=== PATIENT | male | born 1930 | race Caucasian/White ===

== ENCOUNTER 2017-05-23 14:03 | Outpatient (CLI) | payer MEDICARE ==
[2017-05-23 15:03] LABS: Hemoglobin 15.8 g/dL (14.0-18.0); Mean Corpuscular Hemoglobin 32.6 pg (27.0-31.0); Mean Corpuscular Volume 95.9 fl (80.0-94.0); Mean Platelet Volume 6.9 fL (7.4-10.4); Platelet Count 238 thou/uL (130-400); RBC Distribution Width 12.3 % (11.5-14.5); Red Blood Cell (RBC) Count 4.85 mill/uL (4.70-6.10); White Blood Cell (WBC) Count 8.1 thou/uL (4.8-10.8)
[2017-05-23 15:11] LABS: INR-International Normal Ratio 1.6; Prothrombin Time 19.4 SEC (12.0-14.7)
[2017-05-23 15:12] LABS: PTT 40.4 SEC (22.9-36.1)
[2017-05-23 15:23] LABS: Anion Gap 13 mmol/L (10-20); BUN (Urea Nitrogen) 20 mg/dL (8.4-25.7); Calc. Creatinine Clearance 0 mL/min (70-130); Calcium 9.5 mg/dL (7.8-10.44); Carbon Dioxide 22 mmol/L (23-31); Chloride 106 mmol/L (98-107); Estimated GFR-MDRD 52; Glucose 106 mg/dL (83-110); Potassium 4.5 mmol/L (3.5-5.1); Sodium 136 mmol/L (136-145)
== END 2017-05-23 14:04 | disposition home or self-care (01) ==
LOC: LABBT 14:03
PROVIDERS: ATTEND Urology
DX: Z01.812 Encounter for preprocedural laboratory examination (principal); Z01.810 Encounter for preprocedural cardiovascular examination; C67.3 Malignant neoplasm of anterior wall of bladder
CPT/HCPCS: 80048; 85027; 85610; 85730; 93005; 93010

== ENCOUNTER 2017-05-27 06:25 | Day surgery (SDC) | payer MEDICARE ==
[2017-05-23 14:34] VITALS: BMI 27.1
[2017-05-27] MEDS ORDERED: CEFAZOLIN/Water 2 GM/20 ML SYRINGE ONE (07:50)
[2017-05-27] MEDS ORDERED: Fentanyl 250 MCG/5 ML VIAL ONE (08:22)
[2017-05-27] MEDS ORDERED: Iothalamate Meglumine 60% 50 ML VIAL FS ONE (08:23)
--- NOTE | 2017-05-27 11:18 | OP ---
DATE OF PROCEDURE: 05/27/2017 PREOPERATIVE DIAGNOSIS: Recurrent bladder tumors. POSTOPERATIVE DIAGNOSIS: Recurrent bladder tumors. PROCEDURE PERFORMED: Cystoscopy and fulguration. SURGEON: Dr. Kevin Mckeon ANESTHETIC: TIVA. ESTIMATED BLOOD LOSS: None DRAINS: None. PATH: None. FINDINGS: There was a 1 cm area of papillary tumors from the 12 to 1 o'clock position at the a nd just inside of the bladder neck. This area was completely fulgurated with the Bugbee. There was a second tiny papillary tumor in the posterior wall just to the left of the midline that was fulgurat ed. OPERATIVE TECHNIQUE: After obtaining written and verbal consent from the patient after receiving IV antibiotics, he was taken the operative suite. He was placed in supine position on the treatment tab le. PlexiPulses were placed on his lower extremities and turned on. He was given a general anesthet ic, oral obturator intubation. He was placed in the dorsal lithotomy position, sterilely prepped and draped. Cystoscopy was performed with a 22-Fijian sheath. This was well lubricated, passed under d irect vision through the male urethra and into the urinary bladder with aid of a 30-degree lens and v ideo camera and monitor. The patient's bladder was then filled and emptied a number of times and exa mined with both 30 and 70-degree lens. The tumor was most easily seen with the 70 degree lens, we br ought in a Bugbee electrode and used this under direct vision to cauterized this region. There was a second tumor that was seen that was cauterized also using a 30-degree lens. At this point, no furth er tumors were seen. There was no significant bleeding. The bladder was drained, the instruments we re removed. I did not place a Sommer catheter. These were all very small tumors, there were kind of a group of them, but just individual little papillary lesions, nothing that would suggest that this w ould be a higher grade tumor, certainly nothing to suggest any invasions. At the end of the procedur e he was taken out of dorsal lithotomy position, awakened, extubated, and taken by stretcher to the r ecovery room.
== END 2017-05-27 11:10 | disposition home or self-care (01) ==
LOC: SDC 06:25
PROVIDERS: ATTEND Urology
PROC: 0T5B8ZZ Destruction of Bladder, Via Natural or Artificial Opening Endoscopic (ICD-10-PCS; principal; 2017-05-27)
DX: D41.4 Neoplasm of uncertain behavior of bladder (principal); G47.30 Sleep apnea, unspecified; Z91.013 Allergy to seafood; Z91.041 Radiographic dye allergy status; Z91.048 Other nonmedicinal substance allergy status; Z90.6 Acquired absence of other parts of urinary tract; Z98.890 Other specified postprocedural states
CPT/HCPCS: J3010; Q9961

== ENCOUNTER 2019-10-06 15:20 | Emergency (ER) | payer MEDICARE ==
--- NOTE | 2019-10-06 16:06 | CT ---
CT BRAIN NONCONTRAST: DATE: 10/06/2019 HISTORY: 88-year-old male status post acute head trauma from fall FINDINGS: There is no evidence of acute intra-axial or extra-axial hemorrhage. There is no midline shift or any other mass effect. There is no extra-axial fluid collection. There is no evidence of obstructive hydrocephalus. Calvarium is intact. IMPRESSION: No acute intracranial findings.
--- NOTE | 2019-10-06 16:09 | CT ---
EXAM: CT of the cervical spine without contrast HISTORY: Fall with head trauma and neck pain COMPARISON: None TECHNIQUE: Multiple contiguous axial images were obtained in a CT of the cervical spine without contr ast. Sagittal and coronal reformats were performed. FINDINGS: The vertebral bodies demonstrate normal height and alignment without fracture or subluxatio n. Moderate diffuse degenerative changes are present. No prevertebral soft tissue swelling is seen. The posterior facets are well aligned. Normal alignment of the skull base with the cervical spine is seen. The lung apices and cervical soft tissues are unremarkable. IMPRESSION: No evidence of acute osseous abnormality of the cervical spine.
[2019-10-06 17:07] LABS: INR-International Normal Ratio 1.7; Prothrombin Time 20.3 sec (12.0-14.7)
--- NOTE | 2019-10-06 19:22 | RAD ---
RIGHT SHOULDER THREE VIEWS: 10/06/19 HISTORY: Fall, right shoulder pain. FINDINGS/IMPRESSION: There are degenerative changes in the acromioclavicular joint and glenohumeral joints. No acute fract ure or dislocation is seen. POS: [facility]
== END 2019-10-06 18:41 | disposition home or self-care (01) ==
LOC: ERS 15:20
DX: S01.01XA Laceration without foreign body of scalp, initial encounter (principal); I25.10 Atherosclerotic heart disease of native coronary artery without angina pectoris; E78.5 Hyperlipidemia, unspecified; I10 Essential (primary) hypertension; W18.09XA Striking against other object with subsequent fall, initial encounter
CPT/HCPCS: 12002; 36415; 70450; 72125; 85610; 85730

== ENCOUNTER 2019-12-16 12:27 | Outpatient (CLI) | payer MEDICARE ==
--- NOTE | 2019-12-16 13:12 | RAD ---
EXAM: 3 views of the left thumb HISTORY: Thumb pain COMPARISON: None FINDINGS: There is no evidence of acute fracture or dislocation. Ossific fragments adjacent to the in terphalangeal joint of the thumb appear chronic as they appear corticated. No soft tissue swelling is seen. No degenerative changes are present. No radiopaque foreign body is seen. IMPRESSION: No evidence of acute osseous abnormality.
--- NOTE | 2019-12-16 13:13 | RAD ---
EXAM: 3 views of the left wrist HISTORY: Left wrist pain COMPARISON: 09/07/2019 FINDINGS: 3 views of the left wrist shows no evidence of acute fracture or dislocation. No soft tissu e swelling is seen. Mild radiocarpal degenerative changes are present. IMPRESSION: Mild left wrist degenerative change without acute osseous abnormality.
== END 2019-12-16 12:28 | disposition home or self-care (01) ==
LOC: SCSRAD 12:27
PROVIDERS: ATTEND Internal Medicine
DX: M25.532 Pain in left wrist (principal); M79.645 Pain in left finger(s); R29.6 Repeated falls; M19.032 Primary osteoarthritis, left wrist